=== PATIENT | male | born 1950 | race Caucasian/White ===

== ENCOUNTER → 2017-09-30 | Outpatient (CLI) | payer MEDICARE, OTHER ==
[~2017-09-30] MED LIST: ACE325 PO; AMIO400T9 PO; ASP325 PO; ASPI-715 PO; ATOR20TA22 PO; AZIT-9 PO; AZIT1PAC21 PO; CHOL10005 PO; HYDR473S4 PO; IBUP-1618 PO; MET50 PO; METO-231 PO; METO-235 PO; METO25TA23 PO; METO25TA93 PO; METXL50 PO; OMEP-218 PO; PAN40 PO; PER PO; PRE20 PO; PROP425C6 PO; PTU50 PO; WAR25 PO; WAR5 PO; WARF-12 PO; [UNRECOGNIZED DRUG - CODE] PO
== END ==
LOC: LAB 13:04
PROVIDERS: ATTEND Internal Medicine
DX: R35.0 Frequency of micturition (principal)
CPT/HCPCS: 81001

== ENCOUNTER → 2018-07-01 | Outpatient (CLI) | payer MEDICARE, OTHER ==
--- NOTE | 2018-07-01 15:12 | RADIOLOGY IMAGING REPORT ---
FACILITY: [facility] PATIENT NAME: Austin De Santiago : 1950 MR: [id number] V: [id number] EXAM DATE: ORDERING PHYSICIAN: GABRIEL LARSEN TECHNOLOGIST: Location: [facility] Patient: Austin De Santiago : 1950 Visit/Account:[id number] Date of Sevice: 07/01/2018 INDICATION: . Pain in the low back that radiates to the right hip. DATE: 07/01/2018 3:00 PM. TECHNIQUE: HIP RIGHT W/O CONTRAST. Noncontrast multisequence multiplanar MR imaging was performed of the right hip. COMPARISON: None FINDINGS: Marrow signal is normal without fracture or dislocation no edema at the SI joints. No erosions. No pu bic symphysis edema. The femoral heads are spherical without evidence of avascular necrosis. The rectus femoris origins, iliopsoas insertions, gluteal attachments, and hamstring origins are norm al. There is no hip joint effusion. There is mild heterogeneity of the anterosuperior labrum, but this is likely of questionable clinical significance. Muscle bulk and signal are normal. No muscle tear or strain. Incidental note is made of prostate hypertrophy with prostate measuring 5.1 cm diameter. IMPRESSION: No clear source of pain at the right hip. Report Dictated By: Neftaly Ceja MD at 07/01/2018 3:00 PM Report E-Signed By: Neftaly Ceja MD at 07/01/2018 3:07 PM WSN:[id number]
--- NOTE | 2018-07-01 17:34 | RADIOLOGY IMAGING REPORT ---
FACILITY: [facility] [place] PATIENT NAME: Austin De Santiago : 1950 MR: [id number] V: [id number] EXAM DATE: ORDERING PHYSICIAN: GABRIEL LARSEN TECHNOLOGIST: [place] [facility] [place] Patient: Austin De Santiago : 1950 Visit/Account:[id number] Date of Sevice: 07/01/2018 EXAMINATION: MRI Lumbar spine without intravenous contrast HISTORY: Low back pain radiating into the right hip. COMPARISON: None available. TECHNIQUE: Multi-planar, multi-sequence lumbar spine MRI was performed without intravenous contrast administration. FINDINGS: Alignment: Mild convex leftward curvature. Vertebral marrow signal: Negative. Distal thoracic cord: Negative. Conus: negative, terminates at T12-L1 Cauda equina: Negative. Paravertebral soft tissues: Negative. Visualized abdominal and pelvic structures: Negative. Disc Spaces: Lower thoracic spine: Negative. L1-2: Small Schmorl's node in the superior L2 vertebral body. Otherwise negative. L2-3: Minimal disc bulge and facet hypertrophy. No significant stenosis. L3-4: Circumferential disc bulge and facet hypertrophy. Mild spinal canal and bilateral neural forami nal stenosis. L4-5: Mild circumferential disc bulge with small central annular fissure. With bilateral facet hypert rophy. Mild spinal canal stenosis. Moderate bilateral neural foraminal stenosis. L5-S1: Negative. IMPRESSION: Mild multilevel degenerative disc disease and facet hypertrophy with mild convex leftward curvature. Report Dictated By: Matthew Nicolas MD at 07/01/2018 5:25 PM Report E-Signed By: Matthew Nicolas MD at 07/01/2018 5:30 PM WSN:[id number]
== END ==
LOC: MRI 01:12
PROVIDERS: ATTEND Nurse Practitioner Family
DX: M54.9 Dorsalgia, unspecified (principal); M25.551 Pain in right hip; R20.2 Paresthesia of skin; M54.5 Low back pain
CPT/HCPCS: 72148

== ENCOUNTER 2018-08-28 12:31 | Emergency (ER) | payer MEDICARE, OTHER ==
--- NOTE | 2018-08-28 12:40 | ER Report ---
History and Physical Time Seen By MD: 12:39 Hx. of Stated Complaint: FEELS LIKE HE IS IN A-FIB. WAS TOLD TO COME IN TO BE EVALUATED HPI/ROS CHIEF COMPLAINT: Arrhythmia HISTORY OF PRESENT ILLNESS: This is a 68-year-old male who presents to emergency department for concerns of atrial fibrillation. Patient states that he has a history of atrial fibrillation, has had 3 ablations. Patient states over the last 2 years he been doing well, has been well controlled. Was on Propafenone, did run out, ultimately his primary care provider took him off the medication completely. Patient then began to have intermittent arrhythmias, patient states he can feel when the arrhythmia begins. States that 6 weeks ago he had another arrhythmia, is currently taking Toprol 5 mg Toprol has been taking this regularly. States that the arrhythmia resolved. Since then was feeling better, no arrhythmias however he was started on elloquis 3 weeks ago, has also been taking a baby aspirin for a number of years. Yesterday at 11:30 the arrhythmia began again, spoke with his primary care provider and was recommended to come in for an evaluation today. He states that he's been in A. fib since yesterday, standing up ambulating he feels lightheaded, no chest pain, only shortness of breath when up ambulating. No nausea or vomiting. No rashes. No fevers or chills. No diarrhea or dysuria. REVIEW OF SYSTEMS: Constitutional: No fever, no chills. Eyes: No discharge. ENT: No sore throat. Cardiovascular: As above. Respiratory: As above. Gastrointestinal: No abdominal pain, no vomiting. Genitourinary: No hematuria. Musculoskeletal: No back pain. Skin: No rashes. Neurological: As above. Allergies: Coded Allergies: No Known Drug Allergies (Verified , 07/10/08) Home Meds Active Scripts Atorvastatin Calcium (LIPITOR) 20 Mg Tablet, 1 TAB PO QDAY for 30 Days, #90 TAB 3 Refills Prov:DILCIA RIVERA MD 08/18/17 Propafenone Hcl (PROPAFENONE HCL) 425 Mg Cap.er.12h, 1 CAP PO BID, #180 CAP 3 Refills Prov:DILCIA RIVERA MD 03/11/17 Reported Medications Cholecalciferol (Vitamin D3) (VITAMIN D3) 1,000 Unit Tablet, 1000 UNIT PO, TAB 09/16/17 Metoprolol Succinate (METOPROLOL SUCCINATE) 25 Mg Tab.er.24h, 0.5 TAB PO QDAY, TAB 07/10/17 Aspirin (Aspirin) 81 Mg Tablet.dr, 81 MG PO DAILY, 0 Refills 11/06/08 Past Medical/Surgical History Patient has a past medical and surgical history of seizures, intermittent atrial fibrillation with 3 ablations, multiple cardioversions, pneumonia, colonoscopy, wears glasses, 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 Reviewed Nurses Notes: Yes Hx Smoking: No Smoking Status: Never Smoker Hx Substance Use Disorder: No Hx Alcohol Use: Yes Constitutional Vital Sign - Last 24 Hours 08/28/18 08/28/18 08/28/18 08/28/18 12:35 12:38 12:46 12:53 Temp 97.5 Pulse 135 136 Resp 18 47 B/P (MAP) 93/76 93/76 (82) 83/74 (77) Pulse Ox 97 97 O2 Delivery Room Air 08/28/18 08/28/18 08/28/18 08/28/18 12:56 13:00 13:01 13:30 Resp 14 B/P (MAP) 96/65 (75) 108/83 (91) 97/60 (72) Pulse Ox 95 08/28/18 08/28/18 08/28/18 08/28/18 13:46 13:51 14:06 14:20 Pulse 135 ??? 136 Resp 8 0 B/P (MAP) 93/77 (82) Pulse Ox 92 97 08/28/18 08/28/18 08/28/18 08/28/18 14:21 14:27 14:33 14:34 Pulse 135 Resp 12 B/P (MAP) 137/91 (106) 114/76 (89) Pulse Ox 99 O2 Flow Rate 2.0 08/28/18 08/28/18 08/28/18 14:36 14:51 14:57 Pulse 75 69 Resp 17 16 B/P (MAP) 116/80 (92) Pulse Ox 100 98 Physical Exam General Appearance: The patient is alert, has no immediate need for airway protection and no signs of toxicity. Eyes: Pupils equal and round no pallor or injection. ENT, Mouth: Mucous membranes are moist. Respiratory: There are no retractions, lungs are clear to auscultation. Cardiovascular: Irregular rate and rhythm, no murmurs, clicks or rubs. Gastrointestinal: Abdomen is soft and non tender, no masses, bowel sounds normal. Neurological: Alert and oriented 4. Moving all extremities. Following all commands. No focal neuro deficits. Skin: Warm and dry, no rashes. Musculoskeletal: Neck is supple non tender. Extremities are nontender, nonswollen and have full range of motion. DIFFERENTIAL DIAGNOSIS: After history and physical exam differential diagnosis was considered for myocardial infarction, viral syndrome, atrial fibrillation, atrial flutter, SVT, pneumonia. Medical Decision Making Data Points Result Diagram: 08/28/18 1241 08/28/18 1241 Laboratory Hematology Test 08/28/18 12:41 Red Blood Count 5.19 M/uL (4.00-5.60) Mean Corpuscular Volume 91.4 fL (80.0-96.0) Mean Corpuscular Hemoglobin 31.2 pg (26.0-33.0) Mean Corpuscular Hemoglobin Concent 34.1 g/dL (32.0-36.0) Red Cell Distribution Width 12.9 % (11.5-14.5) Mean Platelet Volume 8.3 fL (7.2-11.1) Neutrophils (%) (Auto) 75.3 % (39.4-72.5) Lymphocytes (%) (Auto) 17.5 % (17.6-49.6) Monocytes (%) (Auto) 6.2 % (4.1-12.4) Eosinophils (%) (Auto) 0.4 % (0.4-6.7) Basophils (%) (Auto) 0.6 % (0.3-1.4) Nucleated RBC Relative Count (auto) 0.1 /100WBC Neutrophils # (Auto) 3.9 K/uL (2.0-7.4) Lymphocytes # (Auto) 0.9 K/uL (1.3-3.6) Monocytes # (Auto) 0.3 K/uL (0.3-1.0) Eosinophils # (Auto) 0.0 K/uL (0.0-0.5) Basophils # (Auto) 0.0 K/uL (0.0-0.1) Nucleated RBC Absolute Count (auto) 0.01 K/uL Sodium Level 141 mmol/L (137-145) Potassium Level 4.2 mmol/L (3.5-5.0) Chloride Level 108 mmol/L (98-107) Carbon Dioxide Level 26 mmol/L (22-30) Blood Urea Nitrogen 17 mg/dl (9-21) Creatinine 1.10 mg/dl (0.66-1.25) Glomerular Filtration Rate Calc > 60.0 Random Glucose 99 mg/dl (75-110) Calcium Level 9.0 mg/dl (8.4-10.2) Magnesium Level 2.3 mg/dl (1.7-2.2) Total Bilirubin 1.7 mg/dl (0.2-1.3) Aspartate Amino Transf (AST/SGOT) 23 U/L (0-35) Alanine Aminotransferase (ALT/SGPT) 34 U/L (0-56) Alkaline Phosphatase 66 U/L (0-126) Troponin I < 0.012 ng/ml Total Protein 7.4 g/dl (6.3-8.2) Albumin 4.6 g/dl (3.5-5.0) Chemistry Test 08/28/18 12:41 White Blood Count 5.2 k/uL (4.5-11.0) Red Blood Count 5.19 M/uL (4.00-5.60) Hemoglobin 16.2 g/dL (14.0-18.0) Hematocrit 47.4 % (42.0-52.0) Mean Corpuscular Volume 91.4 fL (80.0-96.0) Mean Corpuscular Hemoglobin 31.2 pg (26.0-33.0) Mean Corpuscular Hemoglobin Concent 34.1 g/dL (32.0-36.0) Red Cell Distribution Width 12.9 % (11.5-14.5) Platelet Count 206 K/uL (150-450) Mean Platelet Volume 8.3 fL (7.2-11.1) Neutrophils (%) (Auto) 75.3 % (39.4-72.5) Lymphocytes (%) (Auto) 17.5 % (17.6-49.6) Monocytes (%) (Auto) 6.2 % (4.1-12.4) Eosinophils (%) (Auto) 0.4 % (0.4-6.7) Basophils (%) (Auto) 0.6 % (0.3-1.4) Nucleated RBC Relative Count (auto) 0.1 /100WBC Neutrophils # (Auto) 3.9 K/uL (2.0-7.4) Lymphocytes # (Auto) 0.9 K/uL (1.3-3.6) Monocytes # (Auto) 0.3 K/uL (0.3-1.0) Eosinophils # (Auto) 0.0 K/uL (0.0-0.5) Basophils # (Auto) 0.0 K/uL (0.0-0.1) Nucleated RBC Absolute Count (auto) 0.01 K/uL Glomerular Filtration Rate Calc > 60.0 Calcium Level 9.0 mg/dl (8.4-10.2) Magnesium Level 2.3 mg/dl (1.7-2.2) Total Bilirubin 1.7 mg/dl (0.2-1.3) Aspartate Amino Transf (AST/SGOT) 23 U/L (0-35) Alanine Aminotransferase (ALT/SGPT) 34 U/L (0-56) Alkaline Phosphatase 66 U/L (0-126) Troponin I < 0.012 ng/ml Total Protein 7.4 g/dl (6.3-8.2) Albumin 4.6 g/dl (3.5-5.0) EKG/Imaging EKG Interpretation 12 lead EKG: Time of EKG 1237. Rhythm: Atrial flutter, with a rate of 136. [place]: normal QRS: normal ST segments: No ST depression or elevation identified. No previous EKGs for comparison. 12 lead EKG: Time of EKG 1425. Rhythm: Normal sinus rhythm, ventricular rate 79 BPM. [place]: normal QRS: normal ST segments: No ST depression or elevation identified. [place] [facility] [place] De [place] : 1950 Visit/Account:[id number] Date of Sevice: 08/28/2018 2 VIEWS CHEST INDICATION: Respiratory distress. COMPARISON: November 03, 2008 FINDINGS: On today's examination, the lungs are clear and are well aerated bilaterally. No effusion or pneumothorax is seen. Heart size and mediastinal contours are normal. IMPRESSION: 1. No radiographic evidence of active disease. Report Dictated By: Marco Antonio Holden at 08/28/2018 1:33 PM Report E-Signed By: Marco Antonio Holden at 08/28/2018 1:34 PM WSN:[id number] ED Course/Re-evaluation Clinical Indication for ER IV: Hydration, IV Access ED Course The patient was admitted to room. A history and physical were obtained. Differential diagnoses were considered. IV was started. A CBC, CMP, magnesium and troponin were obtained. A 1 L normal saline bolus was given.initial EKG showing atrial flutter, with a rate of 136 bpm. Repeat EKG postprocedure showing normal sinus rhythm with rate of 79 BPM. CBC unremarkable, chemistries showing chloride 108, magnesium 2.3, negative troponin. As the patient was somewhat symptomatic with his atrial flutter, had some hypotension while in the emergency departments did not feel comfortable adding additional beta blockers to the patient's regiments as this is worked in the past, did not feel that a calcium Nava would be warranted at this time either, patient has been on Ahlquist for 3 weeks and has been taking baby aspirin for years, this was discussed with the patient, ultimately we elected to cardiovert as patient has had multiple cardioversions in the past with success. The patient was agreeable with the cardioversion. We did have a successful cardioversion, patient was given etomidate and cardioverted as noted below. Patient states feeling better after the cardioversion, no longer has the fluttering feeling in his chest. I did recommend that he continues with his current medications, I want him to follow- up with his primary care provider early next week for repeat evaluation and try to reschedule his follow-up cardiology appointment with Dr. Cain sooner than his scheduled appointment. Patient expressed understanding, was in agreement with this plan of care and discharged home. The patient's daughter was here driving him home. Procedure: Procedural sedation. A pre-sedation evaluation was completed on the patient at 1420. Patient is an appropriate candidate for cardioversion. The risks of the sedation were discussed with the patient. A time out was completed. The patient was sedated with 10 mg IV etomidate. The patient was monitored with continuous pulse oximetry and threat monitoring analyst. There were no complications and no significant hypoxemia. I remained at the bedside for the sedation. The total time I spent in the procedural sedation was 20 minutes, with Dr. Coley. Procedure: Elective electrical cardioversion. The patient was electively electrically cardioverted for atrial flutter. The patient was on a continuous monitoring and evaluation advisor, [facility] The patient was on continuous pulse oximetry. The cardioversion was attempted with 150 joules biphasic current. The cardioversion was successful. The patient tolerated the procedure well with no complications. The procedure was performed by myself and Dr. Coley. Decision to Disposition Date: Aug 28, 2018 Decision to Disposition Time: 14:50 Depart Departure Latest Vital Signs Vital Signs Date Time Temp Pulse Resp B/P (MAP) Pulse Ox O2 Delivery O2 Flow Rate FiO2 08/28/18 14:57 116/80 (92) 08/28/18 14:51 69 16 98 08/28/18 14:33 2.0 08/28/18 12:35 97.5 Room Air Impression: Primary Impression: Atrial flutter Additional Impression: Encounter for cardioversion procedure Condition: Improved Disposition: HOME OR SELF-CARE Referrals: DILCIA RIVERA MD (PCP) Patient Instructions: Atrial Flutter (ED) Additional Instructions: Please follow-up with the drawing checker as indicated, I would encourage you to contact the drawing checker to see if they can see you sooner than your current scheduled appointment. Be sure to drink plenty of water. Continue with your current medications. Follow-up with your primary care provider next week for reevaluation. Return to the ER for any other concerns or worsening symptoms. Problem Qualifiers Primary Impression: Atrial flutter Atrial flutter type: unspecified Qualified Codes: I48.92 - Unspecified atrial flutter MOI REYES HEAD SWAMPER-BC Aug 28, 2018 12:40
[2018-08-28] MEDS ORDERED: NS(*) 0.9% 1000 ML BAG 1,000 ML IV ONE (12:42)
[2018-08-28 12:53] LABS: PLATELET COUNT, AUTOMATED 206 K/uL (150-450)
--- NOTE | 2018-08-28 12:59 | EKG ---
FACILITY: [facility] PATIENT NAME: SHERIE BARKER : [id number] MR: [id number] V: [id number] EXAM DATE: ORDERING PHYSICIAN: MOI REYES TECHNOLOGIST: RUBIN Test Reason : FAST HR Blood Pressure : / mmHG Vent. Rate : 136 BPM Atrial Rate : 272 BPM P-R Int : 000 ms QRS Dur : 082 ms QT Int : 318 ms P-R-T Axes : 263 077 -37 degrees QTc Int : 478 ms Supraventricular tachycardia Marked ST abnormality, possible inferior subendocardial injury Abnormal ECG No previous ECGs available Confirmed by CARI JORDAN ([id number]) on 08/28/2018 4:28:22 PM Referred By: MOI Confirmed By:CARI JORDAN
--- NOTE | 2018-08-28 13:39 | RADIOLOGY IMAGING REPORT ---
FACILITY: [facility] - [place] PATIENT NAME: Austin De Santiago : 1950 MR: [id number] V: [id number] EXAM DATE: ORDERING PHYSICIAN: MOI REYES TECHNOLOGIST: Location: [facility] [place] Patient: Austin De Santiago : 1950 Visit/Account:[id number] Date of Sevice: 08/28/2018 2 VIEWS CHEST INDICATION: Respiratory distress. COMPARISON: November 03, 2008 FINDINGS: On today's examination, the lungs are clear and are well aerated bilaterally. No effusion or pneumoth orax is seen. Heart size and mediastinal contours are normal. IMPRESSION: 1. No radiographic evidence of active disease. Report Dictated By: Marco Antonio Holden at 08/28/2018 1:33 PM Report E-Signed By: Marco Antonio Holden at 08/28/2018 1:34 PM WSN:[id number]
[2018-08-28] MEDS ORDERED: ETOMIDATE 20 MG/10 ML VIAL IVP ONE (13:55)
[2018-08-28 14:57] VITALS: BP 116/80
--- NOTE | 2018-08-28 18:39 | EKG ---
FACILITY: [facility] PATIENT NAME: SHERIE BARKER : [id number] MR: [id number] V: [id number] EXAM DATE: ORDERING PHYSICIAN: MOI REYES TECHNOLOGIST: RUBIN Test Reason : POST CARDIOVER Blood Pressure : / mmHG Vent. Rate : 079 BPM Atrial Rate : 079 BPM P-R Int : 118 ms QRS Dur : 088 ms QT Int : 404 ms P-R-T Axes : 072 074 077 degrees QTc Int : 463 ms Sinus rhythm - previous supraventricular tachycardia has resolved No acute appearing findings Confirmed by CARI JORDAN ([id number]) on 08/28/2018 6:48:10 PM Referred By: ROXANA Confirmed By:CARI JORDAN
== END 2018-08-28 15:15 | disposition home or self-care (01) ==
LOC: ER 12:35
DX: I48.92 Unspecified atrial flutter (principal); I95.9 Hypotension, unspecified; Z79.01 Long term (current) use of anticoagulants
CPT/HCPCS: 71046; 83735; 84484; 85025; 92960; 93005; 96361; 96374; 99152; 99285; J3490; J7030; 82040; 82247; 82310; 82374; 82435; 82565; 82947; 84075; 84132; 84155; 84295; 84450; 84460; 84520

== ENCOUNTER → 2019-01-24 | Outpatient (CLI) | payer MEDICARE, OTHER ==
[~2019-01-24] MED LIST changes: +REGADENOSON 0.4 MG/5 ML SYR ONE
--- NOTE | 2019-01-25 13:25 | RADIOLOGY IMAGING REPORT ---
FACILITY: [facility] [place] PATIENT NAME: Austin De Santiago : 1950 MR: [id number] V: [id number] EXAM DATE: ORDERING PHYSICIAN: KWAME OVALLE TECHNOLOGIST: Location: [facility] [place] Patient: Austin De Santiago : 1950 Visit/Account:[id number] Date of Sevice: 01/24/2019 EXAMINATION: Single isotope SPECT imaging with regadenoson infusion and gated SPECT imaging. DATE OF EXAMINATION: 01/24/19. DATE OF INTERPRETATION: 01/25/19. REQUESTING PHYSICIAN: KWAME OVALLE MD. INDICATION: [SOB ]. PROCEDURE: After informed consent the patient received an intravenous injection of 12.3 mCi of Tc-99 m sestamibi followed at an appropriate time interval by rest imaging. The patient then subsequently received an intravenous infusion of 0.4 mg of regadenoson per protocol without complication. Baselin e EKG demonstrates nsr. There were no EKG changes of ischemia following infusion. Symptoms were non specific. The patient then received an intravenous injection of 28.5 mCi of Tc-99m sestamibi followe d by stress imaging. RAW DATA: Examination of the summed raw data revealed a good quality study. MYOCARDIAL PERFUSION: The tomographic images demonstrate rest and stress moderate size and intensity inferior defect which clears with prone imaging indicating evidence of diaphragmatic attenuation. GATED IMAGES: The gated images demonstrate calculated EF of 74% without SWMA's. IMPRESSION: 1. Lexiscan infusion without diagnostic ekg changes 2. Probably normal myocardial perfusion scan with evidence of attenuation but no ischemia or infarc t. 3. Normal LV systolic function; LVEF 74%. 4. Based on the results of this exam, the patient appears to be at low risk for future cardiovascular events in the next 12 mo. Moderate residential risk due to need for lexiscan as opposed to ETT. Report Dictated By: Thor Shah at 01/25/2019 1:07 PM Report E-Signed By: Thor Shah at 01/25/2019 1:17 PM WSN:[id number]
== END ==
LOC: NUC 00:21
PROVIDERS: ATTEND Internal Medicine
DX: I48.0 Paroxysmal atrial fibrillation (principal)
CPT/HCPCS: 78452; 93017; A9500; J2785

== ENCOUNTER → 2019-03-03 | Outpatient (CLI) | payer MEDICARE, OTHER ==
[~2019-03-03] MED LIST changes: -REGADENOSON 0.4 MG/5 ML SYR ONE
--- NOTE | 2019-03-03 15:25 | RADIOLOGY IMAGING REPORT ---
FACILITY: [facility] [place] PATIENT NAME: Austin De Santiago : 1950 MR: [id number] V: [id number] EXAM DATE: ORDERING PHYSICIAN: [facility] TECHNOLOGIST: Location: [facility] Patient: Austin De Santiago : 1950 Visit/Account:[id number] Date of Sevice: 03/03/2019 MRI left foot Indication: Medial midfoot pain. Evaluate posterior tibialis tendon insertion. Comparison: None available Technique: Multiplanar, multisequence MRI examination is performed of the left foot without contrast. This is focused on the hindfoot and midfoot. Findings: The marrow pattern of the most distal tibia and fibula is normal. The marrow pattern of the talus and of the calcaneus is normal. No evidence to suggest hindfoot stress reaction or stress fracture. The marrow pattern of the midfoot is normal. No evidence of midfoot stress reaction or stress fracture. T he included metatarsal bases are normal. Tibiotalar joint is maintained. No osteochondral lesion. Subtalar joints and the midfoot joints are i ntact. Posteriorly, the Achilles insertion is normal. The plantar fascia origins are intact. Anteriorly, the extensor tendons are normal in thickness and signal. Medially, there is thickening of the distal posterior tibialis tendon without evidence of edema or te ar. This suggests chronic posterior tibialis tendinopathy. Remaining flexor tendons are normal. The d eltoid ligament fibers are intact. Laterally, there is abnormal thickening of the peroneus brevis tendon as it courses posterior and inf erior to the fibular malleolus. In this location, there is a full-thickness short segment longitudina l split tear of the tendon. No rupture or tendon retraction. There is a small amount of fluid signal within the common peroneal tendon sheath. Correlate for symptoms. Peroneus longus tendon does appear mildly thickened with changes of tendinopathy. No evidence of tear. The talofibular and the tibiofibu lar ligaments are intact. Intrinsic musculature of the foot appears normal in bulk. IMPRESSION: 1. 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 No evidence of acute edema or tear. 2. Peroneus brevis tendinopathy with longitudinal tearing as the tendon courses inferior to the fibul ar malleolus. No evidence of tendon rupture or retraction. Correlate for symptoms. 3. Mild peroneus longus tendinopathy. 4. Normal hindfoot/midfoot joints and marrow pattern. No evidence to suggest hindfoot/midfoot fractur e or stress reaction. Report Dictated By: Marco Antonio Holden at 03/03/2019 3:06 PM Report E-Signed By: Marco Antonio Holden at 03/03/2019 3:16 PM WSN:[id number]
== END ==
LOC: MRI 02:02
PROVIDERS: ATTEND Orthopaedic Surgery
DX: G57.52 Tarsal tunnel syndrome, left lower limb (principal)